=== PATIENT | female | born 1960 | race Caucasian/White ===

== ENCOUNTER → 2019-05-09 | Outpatient (CLI) | payer OTHER ==
[~2019-05-09] MED LIST: CIPR250 PO; ESTR.1TPB TOP; NITR100CA PO; PHENA200 PO; PROG100 PO
== END | disposition home or self-care (01) ==
LOC: OLS 09:20 → LAB SHORT 09:20 → LAB FUT 05-07 16:50
DX: R19.7 Diarrhea, unspecified (principal)
CPT/HCPCS: 87177; 87209

== ENCOUNTER → 2019-05-15 | Outpatient (CLI) | payer OTHER | LOC: OLS 11:05 → LAB SHORT 11:05 → EDSTATUS 05-07 11:15 → LAB FUT 05-07 11:15 | DX: R19.7 Diarrhea, unspecified (principal) | CPT/HCPCS: 87328 ==

== ENCOUNTER → 2019-06-11 | Outpatient (CLI) | payer OTHER | END | disposition home or self-care (01) | LOC: LAB 09:36 → LAB SHORT 09:36 | DX: R19.7 Diarrhea, unspecified (principal) | CPT/HCPCS: 87015; 87045; 87046; 87205; 87899 ==